=== PATIENT | male | born 1985 | race African-American/Black ===

== ENCOUNTER 2017-09-23 17:16 | Emergency (ER) | payer MEDICARE, MEDICAID ==
[2017-09-23] MEDS ORDERED: Triple Antibiotic 0.94 gm Pkt TP STA (17:54)
--- NOTE | 2017-09-23 18:05 | ED Physician Chart ---
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 pain, A/N/V/D/C, fever, chills, or urinary s/s; pt's last tetanus shot: > 5 years Allergies:: Allergies Allergy/AdvReac Type Severity Reaction Status Date / Time megestrol [From [employer]] Allergy Verified 09/23/17 17:40 Vitals:: Vital Signs - 8 hr 09/23/17 17:41 Temp 97.6 F HR 55 RR 21 BP 99/61 O2 Sat % 95 Historian:: Patient, EMS, Family Member Review:: Nurse's Note Reviewed, Old Chart Reviewed, EMS run form Reviewed ED Review of Systems - Review of Systems General/Constitutional: No fever, No chills, No weight loss, No weakness, No diaphoresis, No edema, No loss of appetite Skin: No skin lesions, No rash, No bruising Head: No headache, No light-headedness, Other (laceration) Eyes: No loss of vision, No pain, No diplopia ENT: No earache, No nasal drainage, No sore throat, No tinnitus Neck: No neck pain, No swelling, No thyromegaly, No stiffness, No mass noted Cardio Vascular: No chest pain, No palpitations, No PND, No orthopnea, No edema Pulmonary: No SOB, No cough, No sputum, No wheezing GI: No nausea, No vomiting, No diarrhea, No pain, No melena, No hematochezia, No constipation, No hematemesis G/U: No dysuria, No frequency, No hematuria, No nacturia Musculoskeletal: No bone or joint pain, No back pain, No muscle pain Endocrine: No polyuria, No polydipsia Psychiatric: No prior psych history, No depression, No anxiety, No suicidal ideation, No homicidal ideation, No auditory hallucination, No visual hallucination Hematopoietic: No bruising, No lymphadenopathy Allergic/Immuno: No urticaria, No angioedema Neurological: No syncope, Focal symptoms, No weakness, No paresthesia, No headache, No seizure, No dizziness, Confusion, No vertigo ED Past Medical History - Past Medical History Obtainable: Yes Past Medical History: CVA/TIA, Dementia, Other (Cerebral Palsy; MR; ) Family History: HTN Social History: Non Smoker, No Alcohol, No Drug Use, Single, Care Facility Surgical History: None Psychiatricy History: Dementia Medication: Reviewed Family Medical History - Family Member Grandmother History Unknown: Yes Ethnicity: Unknown Living Status: Unknown Hx Family Cancer: (unknown) Hx Family Coronary Artery Disease: (UNKNOWN) Hx Family Congestive Heart Failure: (UNKNOWN) Hx Family Hypertension: (UNKNOWN) Hx Family Stroke: (UNKNOWN) Hx Family Diabetes: (UNKNOWN) Hx Family Seizures: (UNKNOWN) Hx Family Dementia: (UNKNOWN) Hx Family AIDS: (UNKNOWN) Hx Family COPD: (UNKNOWN) Hx Family Hepatitis: (UNKNOWN) Hx Family Psychiatric Problems: (UNKOWN) Hx Family Tuberculosis: (UNKNOWN) ED Physical Exam - Physical Examination General/Constitutional: Awake, Well-developed, well-nourished, Alert, No distress, GCS 15, Non-toxic appearing, Ambulatory Other Head comments:: 3.5cm right eyebrow laceration; no FBs; good motor and sensory functions; good NV functions Eyes: Lids, conjuctiva normal, PERRL, EOMI Other Eyes comments:: PERRLA; Fundi: benign; EOMs: WNL; LLL: WNL Skin: Nl inspection, No rash, No skin lesions, No ecchymosis, Well hydrated, No lymphadenopathy ENMT: External ears, nose nl, TM canals nl, Nasal exam nl, Lips, teeth, gums nl , Oropharynx nl, Tonsils nl Other ENMT comments:: TMJs: WNL Neck: Nontender, Full ROM w/o pain, No JVD, No nuchal rigidity, No bruit, No mass, No stridor Other Neck comments:: supple; no meningeal signs; no cervical tenderness; no bruits Respiratory: Nl effort/Exclusion, Clear to Auscultation, No Wheeze/Rhonchi/Rales Cardio Vascular: RRR, No murmur, gallop, rubs, NL S1 S2, Carotid/Femoral/Distal pulses equal bilaterally GI: No tenderness/rebounding/guarding, No organomegaly, No hernia, Normal BS's, Nondistended, No mass/bruits, No McBurney tenderness : No CVA tenderness Extremities: No tenderness or effusion, Full ROM, normal strength in all extremities, No edema, Normal digits & nails Neuro/Psych: Alert/oriented, DTR's symmetric, Normal sensory exam, Normal motor strength, Judgement/insight normal, Mood normal, Normal gait, No focal deficits Other Neuro/Psych comments:: + Quadriplegia Misc: Normal back, No paraspinal tenderness ED Assessment - Procedures Informed Consent: Procedure/risk/benefits explained by MD: Yes Location:: Right Eyebrow: 3.5cm Laceration; no FBs Laceration Type:: Intermediate Wound Length: 3.5 cm Prep/Irrigation:: Thorough cleansing and irrigation with betadine and saline; 6-0 nylon sutures x 7; Neosporin Ointment and dressing applied Inspection: No dirt/debris, NO FB Local Anesthetic:: Xylocaine Suture Type and #: 6-0 Nylon Sutures x 7 ED Septic Shock - . Is Septic Shock (SBP<90, OR Lactate>4 mmol\L) present?: No - <6hrs of presentation: Vital Signs: Vital Signs - 8 hr 09/23/17 17:41 Temp 97.6 F HR 55 RR 21 BP 99/61 O2 Sat % 95 ED Reassessment (Disposition) - Reassessment Reassessment:: pt is asymptomatic upon discharge Reassessment Condition:: Improved - Diagnosis Diagnosis:: 3.5cm Right Eyebrow Laceration; Head Injury - Aftercare/Follow up Instructions Aftercare/Follow-Up Instructions:: Counseled pt regarding lab results/diagnosis & need follow up, Refer to Discharge Instructions, Counseled pt & family regarding lab results/diagnosis & need follow up Medication Prescribed:: Rx: Keflex 500mg po tid x 10 days; Neosporin Ointment bid and dressing x 14 days ; Wound Care/Head Injury Instructions; Eye Care Instructions - Patient Disposition Discharge/Transfer:: Home Condition at Disposition:: Stable, Improved (RTER prn if existing s/s reoccur and/or get worse and/or any other new s/s occur; Sutures to be removed in 4 days to 5 days to 7 days; ACIs given for all above Dx; Refer to Ophthalmic Plastic Surgeon/Internistv SEVERIANO; F/U with PMD in one day or prn; RTER prn if concerned; Have Wound re-checked in one day by PMD)
[2017-09-23] MEDS ORDERED: Bacitracin pkt 1 gm Pkt TP ONE (18:08)
== END 2017-09-23 19:00 ==
LOC: ER 17:16
DX: S01.111A Laceration without foreign body of right eyelid and periocular area, initial encounter (principal); X58.XXXA Exposure to other specified factors, initial encounter; Y93.89 Activity, other specified; Y92.89 Other specified places as the place of occurrence of the external cause; Y99.8 Other external cause status; Z86.73 Personal history of transient ischemic attack (TIA), and cerebral infarction without residual deficits
CPT/HCPCS: X6444; X7704; Z7502; Z7610